=== PATIENT | female | born 1980 | race Caucasian/White ===

== ENCOUNTER 2018-09-05 07:00 | Inpatient (IN) ==
[2018-09-05] MEDS ORDERED: *HR* Nalbuphine 10 MG/ML AMPUL IVP PRN (07:39)
[2018-09-05] MEDS ORDERED: Famotidine 20 MG/2 ML VIAL IVP PRN (07:39)
[2018-09-05] MEDS ORDERED: Naloxone 0.4 MG/ML INJ IVP PRN (07:39)
[2018-09-05] MEDS ORDERED: Metoclopramide 10 MG/2 ML VIAL IVP PRN (07:42)
[2018-09-05] MEDS ORDERED: Ondansetron 4 MG/2 ML VIAL IVP PRN (07:42)
[2018-09-05] MEDS ORDERED: Ringers Solution, Lactated 1,000 ML IVC SCH (07:45)
[2018-09-05] MEDS ORDERED: Oxytocin 20 units/ LR 1000 mL 20 UNIT/1,000 ML BAG IVC SCH ×2 (07:45→18:41)
[2018-09-05 08:00] LABS: Basophils % 0.2 %; Eosinophils # 0.1 K/mcL (0.0-0.6); Eosinophils % 0.8 %; Hematocrit 39.5 % (35.3-44.9); Hemoglobin 13.3 g/dL (11.5-15.4); Immature Granulocytes % 0.5 % (0-4); Lymphocytes % 16.8 %; Mean Corpuscular HGB Conc 33.7 g/dL (31.6-35.5); Mean Corpuscular Hemoglobin 33.9 pg (28.0-33.3); Mean Corpuscular Volume 100.8 fL (83.0-100.0); Mean Platelet Volume 11.3 fL (9.4-12.4); Monocytes # 0.8 K/mcL (0.0-1.3); Monocytes % 6.4 %; Neutrophils # 8.9 K/mcL (1.6-8.9); Platelet Count 177 K/mcL (140-400); Red Blood Count 3.92 M/mcL (3.82-4.97); Red Cell Distribution Width 12.9 % (11.5-14.5); Segmented Neutrophils % 75.3 %
[2018-09-05] MEDS ORDERED: Ringers Solution, Lactated 1,000 ML ONE (08:02)
[2018-09-05] MEDS ORDERED: Oxytocin 20 units/ LR 1000 mL 20 UNIT/1,000 ML BAG IVC ONE ×2 (08:02→18:41)
[2018-09-05 08:35] LABS: Amphetamine Screen,Urine Negative ng/mL (Cutoff=1000); Barbiturate Screen,Urine Negative ng/mL (Cutoff=200); Benzodiazepines Screen,Urine Negative ng/mL (Cutoff=200); Cannabinoid Screen,Urine Negative ng/mL (Cutoff = 50); Cocaine Screen,Urine Negative ng/mL (Cutoff= 300); Opiate Screen,Urine Negative ng/mL (Cutoff=300); Phencyclidine Screen,Urine Negative ng/mL (Cutoff=25)
[2018-09-05] MEDS ORDERED: *HR* FentaNYL (PF) 100 MCG/2 ML VIAL EP ONE (10:41)
[2018-09-05] MEDS ORDERED: *HR* Ropivacaine/PF 0.2% 20 ML VIAL EP ONE (10:41)
--- NOTE | 2018-09-05 10:44 | Anesthesia Evaluation PreOp ---
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 Any Significant HX Other Medical History: GERD Anesthesia History: No Prior Anesthetic Complications, Past Anesthesia (c-scope, MICHELLE) : Yes Test: Positive Alcohol Use: none Drug use: none Medications and Allergies Pnv No.95/Ferrous Fum/Folic AC [ Caplet] 1 tab PO DAILY 09/05/18 [History] Allergy/AdvReac Type Severity Reaction Status Date / Time No Known Allergies Allergy Verified 09/05/18 07:22 - Meds/Allergy Pre-op Review Medications Reviewed: Yes Allergies Reviewed: Yes Beta Blockers on Current Med List: No Anesthesia Results - Labs 09/05/18 07:30 Anesthesia Exam see nsg note Height: 5'8" Weight: 110k NPO (# of Hours): 3 Pain Scale: 6 Pain Scale Used: Numeric (1 - 10) - HEENT Pupil (Motor): Pupils equal Mallampati: II Teeth: Normal Oral Opening: Greater than 3 - HIGH [employer]CHO[employer]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
[2018-09-05] MEDS ORDERED: Epidural Premix (fent/bupiv) 110 ML EP SCH (10:45)
[2018-09-05] MEDS ORDERED: *HR* Ropivacaine/PF 0.2% 20 ML VIAL ONE (10:48)
[2018-09-05] MEDS ORDERED: Lidocaine -MPF 2% 5 ML VIAL ONE (10:48)
[2018-09-05] MEDS ORDERED: *HR* FentaNYL (PF) 100 MCG/2 ML VIAL ONE (10:48)
--- NOTE | 2018-09-05 11:26 | Anesthesia Procedures ---
Date of Encounter: 09/05/18 Time of Encounter: 11:23 Procedures: Anesthesia - Epidural/Spinal Patient ID/Chart reviewed: Yes Patient examined: Yes OB Eval: Gestational age: 39 OB Eval: : 5 OB Eval: Hx Para: 1 OB Eval: Dilated at (cm): 4 OB Eval: Contractions: Non-stressed pattern Consent Obtained: Yes Supplemental Oxygen: None/Room Air Site Prep: Aseptic Technique, Sterile prep and drape, 0.5% Chlorhexidine/Alcohol Patient position: upright Local Anesthetic: Lidocaine 1% Amount of Local Anesthetic used: 5 Touhy Needle Gauge: 18 Touhy Needle Depth (cm): 8 Catheter Depth at Skin (cm): 20 Test Dose (1.5% Lido + Epi): Volume given (mls): 5 Test Dose Result: Negative Loading Dose: Fentanyl (mcg): 100 Loading Dose: Other: rop 0.2% 10cc Infusion Rate (mls/hr): 15 (pcrea 5cc q30") Catheter Secured in Place: Tegaderm Interspace Used: L2-L3 Loss of Resistance (JAMES): Yes Blood: No CSF: No Paresthesia: No Procedure: aseptic, sia well VSS, effective Vitals + FHT's: 110/78 80 16 fht 134
--- NOTE | 2018-09-05 12:56 | OB Labor Progress Note ---
Date of Encounter: 09/05/18 Time of Encounter: 12:54 Labor Progress Note - Subjective Subjective: comfortable with epidural - Cervix Cervix: 7/100/-1 - Heart Tones Heart Tones: 135/moderate/positive accelerations/negative decelerations - [place]: Every 1-2 - Plan Physician notified: Yes Physician notified details: Notified by text of patient rupture of membranes, and cervical exam Plan: Continue. Pitocin per policy, frequent repositioning Anticipate
--- NOTE | 2018-09-05 13:47 | OB/GYN History & Physical ---
Date of Encounter: 09/05/18 Time of Encounter: 07:00 Assessment and Plan (1) Term Current visit: Yes Status: Acute 38yo female who presents for scheduled IOL, at 39+3wks GA 1. Scheduled IOL - elective of labor - vertex presentation (TAUS) - doing hammer/pitocin, found to be 3cm - will plan for epidurall when patient desires Dispo: IOL, hammer/pit. Plan for . MD BREA History of Present Illness Chief complaint: Scheduled IOL HPI: Ms. Overton is a 38 year old female at 39+3wks GA, last 10+ years ago. Uncomplicated vaginal delivery. Doing well this . GBS negative. TDAP complete. Denies VB/LOF/contraction(s). Doing well otherwise. Reports no n/v/d. Scheduled for IOL for AMA. Normal US. testing has been normal as well with twice weekly NSTs. Plans for induction: hammer/pitocin. Vertex. Past Med Surg Social Fam HX - Past Medical History Medical history: no medical history Psychiatric history: no psych history - Past Surgical History Surgical History: no surgical history - Social History Smoking Status: Former smoker Alcohol use: none Drug use: none - Family History Father Living Status: Still Living Hx Family Genitourinary Disorders: Yes (kidney disease) Hx Family Endocrine Disorder: Yes (hypoglycemia) Hx Family Autoimmune Disorders: Yes (sarcoidosis) Obstetrical History - Pregnancies : 5 Livin Medications and Allergies Pnv No.95/Ferrous Fum/Folic AC [ Caplet] 1 tab PO DAILY 09/05/18 [History] Allergy/AdvReac Type Severity Reaction Status Date / Time No Known Allergies Allergy Verified 09/05/18 07:22 Exam - Constitutional Constitutional: well developed, well nourished, no acute distress, average body habitus - HEENT HEENT: Normocephaly, Mucus Membranes Moist - Neck Neck exam: full ROM - Lungs Respiratory exam: CTAB - Cardiovascular Cardiovascular exam: RRR - Abdomen Abdomen: Present: bowel sounds normal - Extremities Extremities exam: full ROM - Vagina Vagina: Present: normal moisture - Uterus Uterus exam: Present: normal size, normal contour - Anus/Rectum Anus/Rectum: Present: normal perianal skin Results Result Diagrams: 09/05/18 07:30 Abnormal lab results WBC 11.8 K/mcL (4.3-11.1) H 09/05/18 07:30 MCV 100.8 fL (83.0-100.0) H 09/05/18 07:30 MCH 33.9 pg (28.0-33.3) H 09/05/18 07:30 All other labs normal. - VTE Reasons for not Prescribing Prophylaxis: Treatment not Indicated - Low risk for VTE
--- NOTE | 2018-09-05 16:01 | OB/GYN Procedure Note ---
Delivery - Delivery Date: 09/05/18 Provider: Samia Barber Delivery induction: oxytocin, hammer Delivery augmentation: pitocin Delivery monitor: external FHT, external uterine Anesthesia: epidural Quantitated Blood Loss: 350 - Infant (s) A Delivery Date: 09/05/18 Delivery Time: 15:39 Presentation: vertex Position: OA Route of delivery: Gender: Female Viability: Viable at 1 minute: 8 at 5 mins: 9 Shoulder Dystocia: not encountered Specimens collected: cord blood Placenta: complete extraction (Cord avulsion at time of delivery. True knot appreciated with wimpy cord. Manual extraction at bedside performed. Evacuation of uterus. IV pitocin initiated along with IM pitocin.) Cord: true knot - Repair Episiotomy: none Laceration Description: Periurethral - Complications Delivery complications: none Delivery comments: Called to see patient at C/C/+2. With 1.5 contraction(s) and a total of 5 pushes with excellent maternal effort, the infant was delivered in the direct OA position. Restitution DENIS. delivered over intact perineum without nuchal. Infant was vigorous and crying. True knot appreciated on cord. 60 second cord delay was allowed. Cord was then clamped and cut by FOB. Cord blood collected, no gases needed given (clinical) status. Cord segment also taken. Placenta attempted to be delivered with mild tension. Cord avulsion did occur, weakening appreciated proximal to the true knot. Complete manual extraction of the placenta was then performed at bedside. Placenta delivered with membranes. Aggressive (but cautious) bimanual examination was performed. A second complete evacuation and evaluation of the uterus was performed to ensure complete removal of products. Only clots appreciated. IV pitocin initiated along with one dose of IM methergine. No bleeding was appreciated and the uterus contracted down appropriately. Upon examination of the perineum, small bilateral periurethral laceration(s) were appreciated. Hemostasis was appreciated and therefore no repair was necessary. The placenta was NOT sent for pathology. EBL: 350mL : 8/9 Lacerations: Bilateral periurethral, hemostatic Placenta delivered: cord avulsion, manual extraction of placenta, no retained products. Will give patient one dose of ancef. MD BREA - Disposition Mom disposition: stable in LDR
[2018-09-05] MEDS ORDERED: Acetaminophen 325 MG TABLET PO PRN (18:41)
[2018-09-05] MEDS ORDERED: Measles/Mumps/Rubella Vacc 0.5 ML VIAL SQ PRN (18:41)
[2018-09-05] MEDS: ceFAZolin 1,000 MG in Water for inj. (sterile) 20 ML 10 ML IVP SCH (23:36)
[2018-09-06 04:43] LABS: Basophils % 0.1 %; Eosinophils # 0.1 K/mcL (0.0-0.6); Eosinophils % 0.7 %; Immature Granulocytes % 0.5 % (0-4); Lymphocytes # 2.3 K/mcL (0.6-4.6); Lymphocytes % 16.9 %; Mean Corpuscular HGB Conc 33.3 g/dL (31.6-35.5); Mean Corpuscular Hemoglobin 33.6 pg (28.0-33.3); Mean Corpuscular Volume 100.9 fL (83.0-100.0); Mean Platelet Volume 11.5 fL (9.4-12.4); Monocytes # 0.9 K/mcL (0.0-1.3); Monocytes % 6.8 %; Platelet Count 138 K/mcL (140-400); Red Blood Count 3.27 M/mcL (3.82-4.97); Red Cell Distribution Width 12.8 % (11.5-14.5)
--- NOTE | 2018-09-06 06:43 | Discharge Summary ---
Date of Encounter: 09/06/18 Time of Encounter: 06:44 - Discharge Diagnosis (1) Term Priority: Primary Status: Acute Comments: 38yo female PPD#1 s/p 1. management - patient doing well, ambulating - voiding independently without diffiulty - ambulating the room with minimal vaginal discomfort - breast feeding, OK to use formula - PP Hgb appropriate - s/p 24hr ancef Dispo; OK to DC to home today pending baby status. Recommendation for OTC medication(s) including IBUprofen and tylenol. Will return to office in 4 weeks for visits. MD BREA - Discharge Medications Prescriptions: No Action Pnv No.95/Ferrous Fum/Folic AC [ Caplet] 1 tab PO DAILY Home Medications: Pnv No.95/Ferrous Fum/Folic AC [ Caplet] 1 tab PO DAILY 09/05/18 [History] Allergies/Adverse Reactions: Allergy/AdvReac Type Severity Reaction Status Date / Time No Known Allergies Allergy Verified 09/05/18 07:22 Data Procedures and tests throughout hospitalization: Laboratory Tests 09/05/18 09/05/18 09/06/18 07:30 07:30 04:05 WBC 11.8 H 13.4 H RBC 3.92 3.27 L Hgb 13.3 11.0 L D Hct 39.5 33.0 L MCV 100.8 H 100.9 H MCH 33.9 H 33.6 H MCHC 33.7 33.3 RDW 12.9 12.8 Plt Count 177 138 L MPV 11.3 11.5 Immature Gran % 0.5 0.5 Seg Neutrophils % 75.3 75.0 Lymphocytes % 16.8 16.9 Monocytes % 6.4 6.8 Eosinophils % 0.8 0.7 Basophils % 0.2 0.1 Neutrophils # 8.9 10.0 H Lymphocytes # 2.0 2.3 Monocytes # 0.8 0.9 Eosinophils # 0.1 0.1 Basophils # 0.0 0.0 Urine Opiates Screen Negative Ur Barbiturates Screen Negative Ur Phencyclidine Scrn Negative Ur Amphetamines Screen Negative U Benzodiazepines Scrn Negative Urine Cocaine Screen Negative U Marijuana (THC) Screen Negative Ur Drug Screen Interp See Below Labs on day of discharge: Labs from last 24 hours 09/06/18 09/05/18 09/05/18 04:05 07:30 07:30 WBC 13.4 H 11.8 H RBC 3.27 L 3.92 Hgb 11.0 L D 13.3 Hct 33.0 L 39.5 MCV 100.9 H 100.8 H MCH 33.6 H 33.9 H MCHC 33.3 33.7 RDW 12.8 12.9 Plt Count 138 L 177 MPV 11.5 11.3 Immature Gran % 0.5 0.5 Seg Neutrophils % 75.0 75.3 Lymphocytes % 16.9 16.8 Monocytes % 6.8 6.4 Eosinophils % 0.7 0.8 Basophils % 0.1 0.2 Neutrophils # 10.0 H 8.9 Lymphocytes # 2.3 2.0 Monocytes # 0.9 0.8 Eosinophils # 0.1 0.1 Basophils # 0.0 0.0 Urine Opiates Screen Negative Ur Barbiturates Screen Negative Ur Phencyclidine Scrn Negative Ur Amphetamines Screen Negative U Benzodiazepines Scrn Negative Urine Cocaine Screen Negative U Marijuana (THC) Screen Negative Ur Drug Screen Interp See Below Date of admission: 09/05/18 07:03 / / Primary care physician: Kirt Murillo Jr, MD Consults: 09/05/18 18:41 Consult to Marketing Communications Manager [CONS] Routine Comment: Vaginal delivery, consult needed Discharging clinician: Samia Barber Anticipated date of discharge: 09/06/18 - Patient Status Disposition: Home, Self-Care Condition: Good - Discharge Instructions Follow Up With: Kirt Murillo Jr, MD [Primary Care Provider] - - Diet and Activity Activity: increase activity as tolerated Diet: advance to your usual diet Hospital Course CUSTOMS INSPECTOR Time Attestation: Total time spent providing and/or coordinating discharge services: Exam - Constitutional Vitals: Temp Pulse Resp BP Pulse Ox 98.7 F 92 18 116/53 98 09/06/18 02:35 09/06/18 02:35 09/06/18 02:35 09/06/18 02:35 09/06/18 02:35 General appearance IM: A&O X 0 - Respiratory Respiratory exam: Present: CTAB - Cardiovascular Cardiovascular exam IM: Present: RRR - GI/Abdominal GI/Abdominal exam IM: normal bowel sounds Incision: normal, dry, intact - Rectal Rectal exam: deferred - Extremities Exam Extremities exam IM: Present: full ROM - Neurological Exam Neurological exam: CN II-XII intact - VTE Reasons for not Prescribing Prophylaxis: Treatment not Indicated - Low risk for VTE
[2018-09-06 08:19] VITALS: BP 115/66
[2018-09-06] MEDS: ceFAZolin 1,000 MG in Water for inj. (sterile) 20 ML 10 ML IVP SCH (08:41)
[2018-09-06] MEDS ORDERED: Prenatal Vit/FA 1 EACH TABLET PO SCH (09:00)
[2018-09-06] MEDS ORDERED: NON-FORMULARY MEDICATION 1 EACH EACH (Pnv No.95/Ferrous Fum/Folic Ac [Prenatal Caplet] 1 T PO SCH (09:00)
[2018-09-06] MEDS ORDERED: cephALEXin 500 MG CAPSULE PO ONE (15:00)
== END 2018-09-06 15:06 | disposition home or self-care (01) | DRG 807 ==
LOC: 1NENULAB 07:03 → 1NENUOBS 19:02
PROVIDERS: ADMIT Student in an Organized Health Care Education/Training Program; ATTEND Student in an Organized Health Care Education/Training Program